=== PATIENT | female | born 1995 | race Caucasian/White ===

== ENCOUNTER 2017-05-05 12:39 | Emergency (ER) | payer OTHER ==
[2017-05-05 12:47] VITALS: BP 107/75; PULSE 72; RESP 16; TEMP 97.9; O2SAT 99
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
== END 2017-05-05 15:54 | disposition home or self-care (01) ==
DX: S09.90XA Unspecified injury of head, initial encounter (principal); S93.601A Unspecified sprain of right foot, initial encounter; V02.10XA Pedestrian on foot injured in collision with two- or three-wheeled motor vehicle in traffic accident, initial encounter; Y92.410 Unspecified street and highway as the place of occurrence of the external cause; Y99.8 Other external cause status; Y93.01 Activity, walking, marching and hiking

== ENCOUNTER 2017-07-21 00:33 | Emergency (ER) | payer OTHER ==
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
[2017-07-21 00:42] VITALS: BP 146/95; PULSE 120; RESP 18; TEMP 97.7; O2SAT 95
== END 2017-07-21 00:50 | disposition home or self-care (01) ==
LOC: EDUNIT#
DX: Z02.89 Encounter for other administrative examinations (principal)

== ENCOUNTER → 2018-08-03 | Outpatient (CLI) | payer OTHER | LOC: FIMAGING 16:48 | PROVIDERS: ATTEND Advanced Practice Midwife | DX: R10.2 Pelvic and perineal pain (principal); Z97.5 Presence of (intrauterine) contraceptive device ==

== ENCOUNTER → 2018-11-03 | Outpatient (CLI) | payer OTHER | LOC: FIMAGING 09:16 ==